=== PATIENT | male | born 1950 | race Caucasian/White ===

== ENCOUNTER → 2023-03-30 16:53 | Outpatient (CLI) | payer MEDICARE, OTHER, SELFPAY ==
--- NOTE | 2023-03-30 | DI.RAD_ITS ---
Exam(s) XR ABDOMEN FLAT UPRIGHT EXAM: XR ABDOMEN FLAT UPRIGHT CLINICAL HISTORY: ABDOMINAL DISTENSION R14.0 R/O OBSTRUCTION. TECHNIQUE: 2D digital imaging was performed. COMPARISON: No exams were available for comparison FINDINGS: Views Bowel gas pattern is nonspecific. No obvious bowel obstruction. No free air. Calcification is seen both sides the pelvis which are probably phleboliths. IMPRESSION: Nonspecific bowel gas pattern. DATA REPOSITORY: RADIATION DOSE DELIVERED:
--- NOTE | 2023-03-30 17:12 | DI.VRAD_ITS ---
PROCEDURE INFORMATION: Exam: XR Abdomen Exam date and time: 03/30/2023 4:21 PM Age: 72 years old Clinical indication: Other: Abdominal distension r14.0 R/O obstruction TECHNIQUE: Imaging protocol: Radiologic exam of the abdomen. Views: 2 Views. Upright and supine views. Total images: 3 COMPARISON: No relevant prior studies available. FINDINGS: Lungs: Lung bases are clear. Heart/Mediastinum: Heart is normal in size. Gastrointestinal tract: Bowel gas pattern is nonobstructive. Intraperitoneal space: Normal. No free air. Organs: No organomegaly. Vasculature: Bilateral pelvic phleboliths. Bones/joints: Mild degenerative change of the spine. Mild loss of height of T12 consistent with an age-indeterminate mild compression deformity. IMPRESSION: 1. Nonobstructive bowel gas pattern. 2. Mild loss of height of T12 consistent with an age-indeterminate mild compression deformity. Dictated and Authenticated by: Fabi Reddy MD. Ordering:SANDRO Tillman MD
== END ==
PROVIDERS: PCP Family Medicine; Visit Provider Family Medicine
DX: R14.0 Abdominal distension (gaseous) (principal)
CPT/HCPCS: 74019

== ENCOUNTER 2023-03-30 22:18 | Outpatient (REF) | payer MEDICARE, SELFPAY ==
[2023-03-30 22:44] LABS: Anion Gap 7.2 mmol/L (3-11); BUN 28 mg/dL (7-18); CO2 27.8 mmol/L (21.0-32.0); Calcium 9.5 mg/dL (8.5-10.1); Calculated LDL 76 mg/dL (<100); Chloride 108 mmol/L (98-107); Cholesterol 143 mg/dL (<200); Estimated GFR 79.97 (mL/min/1.73m2); Glucose 100 mg/dL (74-106); HDL Cholesterol 42 mg/dL (40-60); Potassium 4.2 mmol/L (3.5-5.1); Sodium 143 mmol/L (136-145); TSH (W/Ref FT4) 2.15 uIU/mL (0.36-3.74); Triglyceride 128 mg/dL (<150)
== END 2023-03-30 22:19 | disposition home or self-care (01) ==
LOC: NCHCN 22:18
PROVIDERS: PCP Family Medicine; Visit Provider Family Medicine
DX: E03.9 Hypothyroidism, unspecified (principal); E78.00 Pure hypercholesterolemia, unspecified
CPT/HCPCS: 80048; 80061; 84443; 85025

== ENCOUNTER → 2023-05-24 11:23 | Outpatient (BNVA) | payer MEDICARE, SELFPAY | PROVIDERS: PCP Family Medicine; Referring Provider Family Medicine; Visit Provider Surgery | DX: Z12.11 Encounter for screening for malignant neoplasm of colon (principal); Z86.010 Personal history of colon polyps ==

== ENCOUNTER 2023-06-02 10:54 | Day surgery (SDC) | payer MEDICARE, SELFPAY ==
--- NOTE | 2023-06-01 19:16 | PDOC.DSDIS_ITS ---
Date of service: 06/02/23 Time of Service: 13:46 Discharge Plan Disposition Patient Disposition: Home Condition: Good Discharge Details Reason For Visit: screening colonoscopy Attending Provider: Robin Shell Primary Care Provider: Layne Stark Home Meds and New Rx's Prescriptions: Continued multivitamin [Multiple Vitamins] Tablet 1 tab PO DAILY celecoxib [Celebrex] 200 MG capsule 200 mg PO BID atorvastatin [Lipitor] 40 MG tablet 40 mg PO DAILY levothyroxine [Synthroid] 100 MCG tablet 100 mcg PO DAILY oxycodone-acetaminophen [Percocet] 1 EACH tablet 1 tab-cap PO Q6H PRN tamsulosin [Flomax] 0.4 MG capsule 0.4 mg PO DAILY temazepam 15 MG capsule 15 mg PO HS esomeprazole magnesium 40 mg capsule,delayed release(DR/EC) 40 mg PO DAILY Discontinued polyethylene glycol 3350 17 gram/dose powder 238 g PO ONCE Qty: 238 0RF Rx Instructions: take per colonoscopy instructions bisacodyl [Dulcolax (bisacodyl)] 5 mg tablet,delayed release (DR/EC) 5 mg PO ONCE Qty: 4 0RF Rx Instructions: take per colonoscopy instructions Discharge Instructions Instructions: Diverticulosis (GEN), Diverticulitis Diet (GEN) Additional Instructions: Deepak, we were able to complete your colonoscopy today without any difficulty. Your prep was excellent. I could see everything just fine. I did not see any signs of tumors or polyps anywhere along your colon. Incidentally, you do have some diverticulosis. These are weak spots in the colon wall that typically accumulate with age. Generally speaking the best treatment is maintaining a balanced diet that is rich in dietary fiber, staying well-hydrated, and avoiding symptoms of constipation. I have attached a little bit of information here about diverticulosis. If you have any questions at all, please do not hesitate to let me know. Based on the polyp that you had removed on your previous colonoscopy, I still recommend a 5-year follow-up. 1. If tolerated, consume a soft, low fiber diet for 1-2 days. 2[address] Do not drive, drink alcohol, operate machinery, make critical decisions, or do activities that require coordination or balance for 24 hours. 3. Because air was put into your colon during the procedure, expelling air from your rectum (passing gas or farting) is normal. 4. You may not have a bowel movement for 1-3 days because of the colonoscopy prep. This is normal. 5. Go directly to the emergency room if you notice any of the following: Develop chills (warm to touch), or if you have a thermometer and your temperature is above 101 Difficulty breathing or difficultly swallowing Persistent vomiting Severe abdominal pain, other than gas cramps Severe chest pain Black, tarry stools Any bleeding ? exceeding one tablespoon 6. Call your physician if the site where your intravenous was started becomes red, swollen, painful, and warm to touch. 7. Your physician has reviewed your pre-procedure medications. Please continue to take those medications as previously ordered. You will be given specific information/education regarding any changes to your medications before leaving. Activity:: Activity as Tolerated Diet:: As Tolerated Discharge Orders Discharge Orders: Discharge Order (Routine); Ordered 06/01/23 Ordered By: Robin Shell DS: Diagnosis Discharge Diagnosis (1) Encounter for screening colonoscopy: Status: Acute Asessment and Plan: Negative screening colonoscopy today; based on previous tubular adenoma recomme nd 5-year follow-up
--- NOTE | 2023-06-01 19:18 | COLE_ITS ---
Date of service: 06/02/23 Time of Service: 13:47 Colonoscopy Report Date of procedure: 06/02/23 Pre-op diagnosis general: screening colonoscopy Post-op diagnosis procedure note: other (Diverticulosis) Procedure: Colonoscopy Surgeon: Robin Shell Anesthesia Type: General:No Airway Estimated blood loss (mL): 0 Pathology: none sent Complications: None Disposition: same day Indications: Deepak is 72 years old and he needs a screening colonoscopy. He has a history of tubular adenomas. Prep: Miralax/Dulcolax Procedure Start Time: 13:09 Procedure End Time: 13:30 Retraction Time: 15 Findings: Sigmoid diverticulosis Procedure Description: After the induction of monitored anesthetic care, and with the patient in left lateral decubitus position, I began by performing an external anorectal exam.? Perineum and skin were normal, as was the anal verge.? There was no evidence of external hemorrhoids.? Next, I performed a digital rectal exam.? I did not appreciate any abnormal findings.? Next, I advanced a colonoscope into the rectal vault.? I performed retroflexion.? There are grade 1 internal hemorrhoids.? Using insufflation, I then advanced the colonoscope beyond the rectal folds and into the sigmoid colon before advancing towards the cecum.? There was wid[place] sigmoid diverticulosis. The true lumen was easy to maintain. There is no stigmata of recent bleeding. The quality of the prep was excellent.? The scope was noted to be in the cecum by identification of the ileocecal valve and appendiceal orifice.? I then began withdrawing the colonoscope using repeated irrigation as necessary for full evaluation of the colonic mucosa. ?Once the scope was withdrawn to the level of the rectum, great care was taken to examine portions of the rectal folds.? I did not see any signs of tumors or polyps anywhere along the colon. Finally, the scope was withdrawn and the patient was brought to the same-day surgery recovery unit as the anesthetic wore off. ?The findings and instructions were shared with the patient prior to discharge. [place] Bowel Prep [place] Bowel Prep Right Colon: 3 Left Colon: 3 Transverse Colon: 3 Total Score: 9
[2023-06-02 11:10] VITALS: BP 149/85; PULSE 74; RESP 18; TEMP 36.8; O2SAT 97
[2023-06-02] MEDS: Lactated Ringers 1,000 ML 80 ML IV (11:30)
--- NOTE | 2023-06-02 12:52 | W.ANESPRE ---
General Info Date of Service Date Performed: 06/02/23 Height: 5 ft 8 in Weight: 108 kg Body Mass Index (BMI): 36.1 Surgical Procedure: Operation Date: 06/02/23 12:35 Proposed Procedure Side Surgeon jesus Shell MD Meds Allergies and Home Medications Allergies Allergy/AdvReac Type Severity Reaction Status Date / Time No Known Drug Allergies Allergy Verified 06/02/23 11:24 Home Medication Medication Instructions Recorded atorvastatin 40 mg tablet (Lipitor) 40 mg PO DAILY 04/04/17 celecoxib 200 mg capsule (Celebrex) 200 mg PO BID 04/04/17 levothyroxine 100 mcg tablet 100 mcg PO DAILY 04/04/17 (Synthroid) oxycodone-acetaminophen 10 mg-325 1 tab-cap PO Q6H PRN 04/04/17 mg tablet (Percocet) tamsulosin 0.4 mg capsule (Flomax) 0.4 mg PO DAILY 04/04/17 temazepam 15 mg capsule 15 mg PO HS 04/04/17 esomeprazole magnesium 40 mg 40 mg PO DAILY 05/08/23 capsule,delayed release multivitamin (Multiple Vitamins 1 tab PO DAILY 05/24/23 tablet) Current Visit Medications: Current Medications Generic Name Dose Route Start Last Admin Trade Name Freq PRN Reason Stop Dose Admin Hyoscyamine Sulfate 0.125 mg 06/01/23 19:20 Hyoscyamine 0.125 Mg Sl/Oral/Chew SL 07/01/23 19:19 DIRECTED PRN Ringer's Solution 1,000 mls @ 80 mls/hr 06/02/23 06:00 06/02/23 11:30 IV 07/01/23 23:59 80 mls/hr INFUSION WILFREDO Administration IV Miscellaneous Supplies 1 each 06/02/23 06:00 Iv Access IV 07/01/23 23:59 DIRECTED WILFREDO Ondansetron HCl 4 mg 06/01/23 19:20 Ondansetron 4 Mg/2 Ml Vial IVP 07/01/23 19:19 Q4H PRN PRN Nausea / Vomiting Sodium Chloride 0 ml 06/02/23 06:00 Normal Saline Flush 10 Ml Syr IV 07/01/23 23:59 PRN PRN Sodium Chloride 0 ml 06/02/23 06:00 Normal Saline 10 Ml Vial IJ 07/01/23 23:59 DIRECTED PRN Sterile Water 0 ml 06/02/23 06:00 Water,Injection,Sterile 10 Ml Vial IJ 07/01/23 23:59 DIRECTED PRN PFSH Active Problems Active Problems: Problem Status Onset Code Encounter for screening colonoscopy Z12.11 Medical History Medical History (Updated 06/01/23 @ 19:17 by Robin Shell MD) H/O fracture Back fracture 2003 Thyroid disease HTN (hypertension) GERD (gastroesophageal reflux disease) PE (pulmonary thromboembolism) 1988 Surgical History Surgical History History of bilateral knee replacement H/O inguinal hernia repair History of repair of anterior cruciate ligament of left knee EGD - [facility] (04/18/17) Colonoscopy - [facility] (04/18/17) tubular adenoma Tobacco Smoking/Tobacco Use Status: Never Alcohol Alcohol Intake: current Alcohol intake frequency: a few times a week Substance Use Substance use: Never Substance use type: does not use Vital Signs and Lab Results Vital Signs Most Recent Vital Signs in EMR: Most Recent Vital Signs Temp Pulse Resp BP Pulse Ox 36.8 C 74 18 149/85 H 97 06/02/23 11:10 06/02/23 11:10 06/02/23 11:10 06/02/23 11:10 06/02/23 11:10 Lab Results Blood Type / Crossmatch: No Data to Display Complete Blood Count: No Data to Display Complete Metabolic Panel: No Data to Display Liver Function Panel: No Data to Display Coagulation Panel: No Data to Display Cardiac Panel: No Data to Display Arterial Blood Gas: No Data to Display Venous Blood Gas: No Data to Display Pancreas Panel: No Data to Display Thyroid Panel: No Data to Display Infectious Disease: No Data to Display Blood Cultures: No Data to Display Toxicology Panel: No Data to Display Anesthesia Assessment and Plan Anesthesia History Personal History: No History of Anesthesia Complications Family History: Other Exercise Tolerance Exercise Tolerance: Metabolic Equivalents>4 Pertinent Negatives Pertinent Negatives: No Major Cardiovascular Symptoms or Complaints and No Major Pulmonary Symptoms or Complaints Cardiac & Pulmonary Exam Cardiac Exam: Normal S1/S2 Heart Sounds Pulmonary Exam: Clear Bilateral Breath Sounds Implantable Cardiac Device Does patient have a Pacemaker or an ICD?: No Airway Exam Known Difficult Airway: No Mallampati Class: 3 Mouth Opening: Normal (> 3cm) Thyromental Distance: Greater than 3 cm Neck Range of Motion: Full ROM Neck Circumference: Normal Teeth Condition: Normal Dentition and Removable Dentures/Plates Upper ASA Classification ASA Score: ASA 2 Emergency Case?: No NPO Status NPO Status: NPO Clears >2 hours, Solids >8 hours Anesthesia Plan Resuscitation Status: Full Code Anesthesia Technique: General Anesthesia Airway Planned: Natural Airway Monitors Used: Standard Monitors
[2023-06-02 12:55] VITALS: BMI 36.1
[2023-06-02 13:40] VITALS: BP 114/71; PULSE 68; RESP 18; TEMP 36.8; O2SAT 96
[2023-06-02 14:06] VITALS: BP 147/80; PULSE 63; RESP 18; TEMP 36.5; O2SAT 97
--- NOTE | 2023-06-02 14:26 | W.ANESPOSTOP ---
Postoperative Evaluation Date, Time and Location Date Performed: 06/02/23 Time Performed: 13:52 Patient Location: Day Surgery Unit Vital Signs Most Recent Imported Vital Signs: Most Recent Vital Signs Temp Pulse Resp BP Pulse Ox 36.5 C 63 18 147/80 H 97 06/02/23 14:06 06/02/23 14:06 06/02/23 14:06 06/02/23 14:06 06/02/23 14:06 Pain Score Most Recent Pain Score: Most Recent Pain Score Pain Level 0 06/02/23 14:06 Assessment Mental Status: Awake (Alert & Oriented to Patient Baseline) Airway and Respiratory Function: Patent airway with normal (patient baseline) respiratory exam Cardiovascular Function: Hemodynamically Stable Hydration Status: Adequately Hydrated Nausea & Vomiting: No Nausea or Vomiting Pain: Pt. Denies Any Pain Peripheral Nerve Block: Patient did not receive a nerve block
== END 2023-06-02 14:15 | disposition home or self-care (01) ==
LOC: SUR 10:54
PROVIDERS: PCP Family Medicine; Visit Provider Surgery
PROC: 0DJD8ZZ Inspection of Lower Intestinal Tract, Via Natural or Artificial Opening Endoscopic (ICD-10-PCS; CPT 45378; principal; 2023-06-02 12:30)
DX: Z12.11 Encounter for screening for malignant neoplasm of colon (principal); K57.30 Diverticulosis of large intestine without perforation or abscess without bleeding; K64.0 First degree hemorrhoids
CPT/HCPCS: G0121; J2704

== ENCOUNTER → 2023-07-06 12:10 | Outpatient (CLI) | payer MEDICARE, SELFPAY ==
[2023-07-06] MEDS: Omnipaque 350 MG/ML 100 ML BTL IJ (13:12)
[2023-07-06] MEDS: Normal Saline - Diluent 50 ML VIAL IJ (13:13)
--- NOTE | 2023-07-06 13:45 | DI.CT_ITS ---
Exam(s) CT CHEST PE CTA EXAM: CT CHEST PE CTA CLINICAL HISTORY: DYSPNEA ON EXERTION, R06.09, ? PE. TECHNIQUE: Imaging Protocol: Axial CT angiography was performed with multi-slice acquisition and mu lti-planar and/or 3D reconstructions. CONTRAST MATERIAL: Intravenous: Omnipaque 350 contrast volume:100 mL COMPARISON: No exams were available for comparison FINDINGS: The examination is limited due to patient motion artifact. Tracheobronchial tree: Patent where visualized. Pulmonary parenchyma: There is poor inspiration with decreased lung volumes. No focal consolidating infiltrates are seen. There are dependent infiltrates in the lungs which may represent atelectasis. Mild pulmonary fibrosis. Pulmonary Arteries: No evidence of filling defect to suggest pulmonary emboli. Mediastinum and Griselda: No dominant adenopathy or fluid collection. The esophagus is unremarkable. Visualized thyroid gland: Unremarkable. Pleura: No effusion or pneumothorax. Heart: Cardiomegaly. Coronary artery calcifications are present. No pericardial effusion. Aorta: Thoracic aorta non-dilated. Atherosclerosis. Due to the timing of the bolus, the aorta is not well opacified. Upper abdomen: Unremarkable. Soft tissues: Unremarkable. Bones: Within normal limits for the patient's age. IMPRESSION: 1. No evidence of pulmonary embolism or thoracic aortic aneurysm. 2. There is poor inspiration with decreased lung volumes. There are atelectatic changes in the lungs . No focal consolidating infiltrates are seen. 3. Mild pulmonary fibrosis. RADIATION DOSE DELIVERED: Total DLP DATA REPOSITORY: All CT scans at this facility are submitted to the National Radiology Data Registry (NRDR) Dose Index Registry (DIR) with the [employer] (A[employer]). RADIATION OPTIMIZATION: All CT scans at this facility use at least one of these dose optimization te chniques: automated exposure control; mA and/or kV adjustment per patient size (includes targeted exa ms where dose is matched to clinical indication); or iterative reconstruction.
== END ==
PROVIDERS: PCP Family Medicine; Visit Provider Family Medicine
DX: J84.10 Pulmonary fibrosis, unspecified (principal); R06.09 Other forms of dyspnea
CPT/HCPCS: 36415; 71275; 80053; 83880; 85025; 85379; J3490

== ENCOUNTER 2023-07-06 13:28 | Outpatient (CLI) | payer MEDICARE, SELFPAY ==
[2023-07-06 11:53] LABS: Abs Immature Grans 0.02 10^3/uL (0.0-0.06); Absolute Basophil Count 0.04 10^3/uL (0.0-0.2); Absolute Lymphocyte Count 1.79 10^3/uL (1.2-3.4); Absolute Monocyte Count 0.67 10^3/uL (0.1-0.8); Absolute Neutrophil Count 4.06 10^3/uL (1.2-6.7); Basophils % 0.6; Eosinophils % 4.4; HCT 41.3 % (40.0-50.0); HGB 13.6 g/dL (13.5-17.5); Immature Grans % 0.3; MCH 29.1 pg (27.0-33.0); MCHC 32.9 % (32.0-36.0); MCV 88 fL (80-95); MPV 9.9 fL (8.0-11.0); Monocytes % 9.7; Platelet Count 161 10^3/uL (130-400); RBC 4.68 10^6/uL (4.36-5.78); RDW 12.4 % (11.8-14.1); RDW-SD 39.9 fL; WBC 6.88 10^3/uL (4.4-10.8)
[2023-07-06 12:39] LABS: ALT 29 U/L (16-63); AST 20 U/L (15-37); Albumin 3.6 g/dL (3.4-5.0); Alkaline Phosphatase 97 U/L (46-116); Anion Gap 5.1 mmol/L (3-11); BUN 29 mg/dL (7-18); Bilirubin, Total 0.6 mg/dL (0.2-1.0); CO2 28.9 mmol/L (21.0-32.0); CREATININE 1.1 mg/dL (0.70-1.30); Calcium 9.6 mg/dL (8.5-10.1); Chloride 107 mmol/L (98-107); Estimated GFR 71.32 (mL/min/1.73m2); Glucose 111 mg/dL (74-106); NT-proBNP 79 pg/mL (<300); Potassium 4.5 mmol/L (3.5-5.1); Sodium 141 mmol/L (136-145); Total Protein 7.2 g/dL (6.4-8.2)
[2023-07-06 12:40] LABS: D-Dimer 797 ng/mlFEU (<500)
== END 2023-07-06 13:29 | disposition home or self-care (01) ==
LOC: LBO 07-07 13:29
PROVIDERS: PCP Family Medicine; Visit Provider Family Medicine
DX: R06.09 Other forms of dyspnea (principal)
CPT/HCPCS: 36415; 80053; 83880; 85025; 85379

== ENCOUNTER → 2023-08-07 04:01 | Outpatient (CLI) | payer MEDICARE, SELFPAY ==
--- NOTE | 2023-08-07 | DI.RAD_ITS ---
Exam(s) XR LUMBAR SPINE COMPLETE EXAM: XR LUMBAR SPINE COMPLETE CLINICAL HISTORY: LOW BACK PAIN, M54.50. TECHNIQUE: 2D digital imaging was performed. COMPARISON: MR MRI - LUMBAR SPINE WO CONTRAST from 04/23/2012 FINDINGS: Five views No evidence of acute fracture. Wedge compression fracture of T12 appears stable when compared to 201 2 MRI. There is mild degenerative anterolisthesis of L4 upon L5 without disc space narrowing at this level. No other levels of slippage. Mild multilevel anterior osseous lipping. Bone density normal. No os seous lesions. No scoliosis. Facet arthropathy noted at the lower 3 levels. Sacroiliac joints unre markable. IMPRESSION: Some progression of the degenerative changes when compared to MRI scan of 2012. Mild degenerative anterolisthesis of L 4 upon L5 DATA REPOSITORY: RADIATION DOSE DELIVERED:
--- NOTE | 2023-08-07 | DI.RAD_ITS ---
Exam(s) XR HIP LT COMPLETE AP PELVIS EXAM: XR HIP LT COMPLETE AP PELVIS CLINICAL HISTORY: LT HIP PAIN, M25.552. TECHNIQUE: 2D digital imaging was performed. COMPARISON: No exams were available for comparison FINDINGS: Two views. No evidence of pelvic nor hip fractures. Additional lateral view of the left hip does not reveal sig nificant osteophytes. Bone density normal. No osseous lesions. IMPRESSION: No significant osseous findings DATA REPOSITORY: RADIATION DOSE DELIVERED:
--- NOTE | 2023-08-07 | DI.RAD_ITS ---
Exam(s) XR SHOULDER LT COMPLETE 2+V EXAM: XR SHOULDER LT COMPLETE 2+V CLINICAL HISTORY: LT SHOULDER PAIN,M25.512. TECHNIQUE: 2D digital imaging was performed. COMPARISON: No exams were available for comparison FINDINGS: Five views. No evidence of fracture or dislocation or abnormal soft tissue calcifications in the subacromial spac e. There is a tiny calcification parallel to the superior aspect of the osseous glenoid noted. Ther e are mild degenerative changes in the glenohumeral joint and AC joint. Bone density normal. No oss eous lesions. IMPRESSION: Mild degenerative changes in the glenohumeral and AC joints. Small calcific density parallel to the superior aspect of the osseous glenoid of questionable signifi cance. DATA REPOSITORY: RADIATION DOSE DELIVERED:
== END ==
PROVIDERS: PCP Family Medicine; Visit Provider Family Medicine
DX: M43.16 Spondylolisthesis, lumbar region (principal); M19.012 Primary osteoarthritis, left shoulder
CPT/HCPCS: 72110; 73030; 73502

== ENCOUNTER 2023-08-18 12:49 | Outpatient (REF) | payer MEDICARE, SELFPAY ==
[2023-08-17 21:58] LABS: ESR 10 mm/hr (0-20)
[2023-08-17 23:08] LABS: C-Reactive Protein 0.25 mg/dL (0.0-0.3); TSH (W/Ref FT4) 2.17 uIU/mL (0.36-3.74)
[2023-08-18 19:06] LABS: PSA, Screening 2.1 ng/mL (<=6.5)
[2023-08-22 12:47] LABS: Testosterone, Total 335 ng/dL (240-950)
== END 2023-08-18 12:50 | disposition home or self-care (01) ==
LOC: NCHCN 12:49
PROVIDERS: PCP Family Medicine; Visit Provider Family Medicine
DX: R53.83 Other fatigue (principal); Z12.5 Encounter for screening for malignant neoplasm of prostate
CPT/HCPCS: 84153; 84403; 85652; 84443; 86140

== ENCOUNTER → 2023-08-29 01:08 | Outpatient (CLI) | payer MEDICARE, SELFPAY ==
--- NOTE | 2023-08-29 | DI.NM_ITS ---
APPROVED REPORT Exam: Pharmacologic Patient Location: Out-Patient Room/Bed: Stress Nurse: Faye Flores RN Ordering Provider:SHONNA NIDHI, Contact Number: [phone] BMI: 34.96 Baseline Rhythm: Sinus Bradycardia Comment: LBBB Indications: Chest pain, Medical History Medical History: Back fracture, thyroid disease, PE, HLD Cardiac Medications: Atorvastatin, celecoxib, levothyroxine, multivitamin, percocet, tamsulosin, kalpana zepam Allergies: NKDA Cardiac Risk Factors: HTN, HLD Previous Cardiac Procedures: None Pretest Chest Pain Characteristics: None Exercise History: Indeterminate Physical Disabilities: None Lung Sounds: Clear to auscultation Heart Sounds: Bradycardia Stress Test Details Test: Pharmacologic stress testing performed using 0.4 mg of regadenoson per 5 mL given IV over 10 s econds. Reason for pharmacologic stress test: LBBB. Nuclear Acquisition: Rest Tc-99m/Stress Tc-99m 1 day Rest Isotope: Tc-99m Sestamibi. Dose: 11.0 Date: 08/29/2023 Injection Time: 0845 Stress Isotope: Tc-99m Sestamibi. Dose: 36.0 Date: 08/29/2023 Injection Time: 1020 HR Resting HR Supine: 58 bpm Max Heart Rate (APMHR): 147.384440 bpm Target HR (85% APMHR): 124.297395 bpm Max HR Achieved: 89 bpm % of APMHR: 60.54 Recovery HR: 78 bpm BP Resting BP Supine: 158/90 mmHg Max BP: 158/90 mmHg Recovery BP: 142/80 mmHg ECG Resting ECG: Sinus bradycardia, LBBB Ectopy: None Stress ECG: Sinus Rhythm, LBBB ST Change: Nondiagnostic low heart rate Arrhythmia: None Recovery ECG: Sinus Rhythm, LBBB Recovery ST Change: Nondiagnostic low heart rate Recovery Arrhythmia: None Clinical Stress Symptoms: Mild SOB Angina Score: None Rate Pressure Product: [id number] Stress ECG Conclusion 1. Normal clinical response, no angina 2. Nondiagnostic ECG with baseline LBBB 3. Normal BP response 4. Nuclear findings reported separately Stress Test Summary STAGE HR BP SpO2 Symptoms NOTES Supine 58 158/90 93 1 min post Lexiscan injection 72 158/88 93 Mild SOB 3 min post Lexiscan injection 82 150/76 6 min post Lexiscan injection 78 142/80 All symptoms resolved MPI Conclusion There is small area of anterolateral defect which is partially reversible suggestive of ischemia. Overall LV function is normal, EF 51%. Radiologist Interpretation Radiologist agrees with Registered Medical Assistant's Interpretation. Radiologist Interpretation by: Annie Stein MD Interpretation Date/Time: 08/30/2023 14:07:55
[2023-08-29] MEDS: Regadenoson 0.4 MG/5 ML SYR IVP (10:38)
== END ==
PROVIDERS: PCP Family Medicine; Visit Provider Family Medicine
DX: R07.9 Chest pain, unspecified (principal)
CPT/HCPCS: 78452; 93016; 93018; 93017; J2785

== ENCOUNTER 2023-09-25 05:28 | Outpatient (CLI) | payer MEDICARE, SELFPAY ==
[2023-09-25] MEDS: Inhaler, Assist Device 1 EACH MC (09:15)
[2023-09-25] MEDS: Levalbuterol HFA 15 GM INH 4 PUFF IH (09:15)
--- NOTE | 2023-09-25 14:17 | W.PFT ---
Date of service: 09/25/23 Time of Service: 08:01 Pulmonary Function Test Result Indications: Dyspnea on exertion Interpretation Spirometry: There is no airflow limitation. No bronchodilator response. Lung Volumes: Normal lung volumes. Diffusion Capacity: Normal diffusion Airway Pressure: Normal airways resistance Impression Normal pulmonary function testing Clinical Correlation therefore is recommended.
== END 2023-09-25 05:29 | disposition home or self-care (01) ==
LOC: RT 05:28
PROVIDERS: PCP Family Medicine; Visit Provider Family Medicine
DX: R06.00 Dyspnea, unspecified (principal)
CPT/HCPCS: 94060; 94726; 94729

== ENCOUNTER → 2023-10-26 03:12 | Outpatient (CLI) | payer MEDICARE, SELFPAY ==
--- NOTE | 2023-10-26 | DI.US_ITS ---
Exam(s) US RENAL EXAM: US RENAL CLINICAL HISTORY: URINARY RETENTION,R33.9. TECHNIQUE: Booth scale, color and spectral Doppler were used. COMPARISON: None FINDINGS: Renal size in cm: Right: 10.8 left: 0.0 Echogenicity: Normal Hydronephrosis: No Cyst or mass: Multiple cysts bilateral. Largest on right 2.5 cm, at upper pole. Largest on left 3.5 cm, at upper pole. Nephrolithiasis: No Bladder:Normal. Prevoid vol:148 cc Postvoid vol:Patient unable to void Prostate volume 25 cc IMPRESSION: Bilateral renal cysts. Bladder volume 148 cc . Patient unable to void for postvoid residual volume. Prostate volume 25 cc. DATA REPOSITORY:
== END ==
PROVIDERS: PCP Family Medicine; Visit Provider Family Medicine
DX: R33.9 Retention of urine, unspecified (principal); N28.1 Cyst of kidney, acquired
CPT/HCPCS: 76770

== ENCOUNTER → 2023-12-19 09:13 | Outpatient (BNVA) | payer MEDICARE, SELFPAY | PROVIDERS: PCP Family Medicine; Referring Provider Family Medicine; Visit Provider Surgery | DX: K62.5 Hemorrhage of anus and rectum (principal); R12 Heartburn; Z95.9 Presence of cardiac and vascular implant and graft, unspecified | CPT/HCPCS: 99213 ==

== ENCOUNTER 2024-01-17 10:55 | Outpatient (RCR) | payer MEDICARE, SELFPAY | END 2024-01-21 23:59 | disposition home or self-care (01) | LOC: CR 10:55 | PROVIDERS: PCP Family Medicine; Visit Provider Internal Medicine Cardiovascular Disease | DX: I20.89 Other forms of angina pectoris (principal) | CPT/HCPCS: S9472 ==

== ENCOUNTER 2024-01-23 13:42 | Outpatient (CLI) | payer MEDICARE, SELFPAY ==
--- NOTE | 2024-01-23 13:30 | DI.RAD_ITS ---
Exam(s) XR SHOULDER RT COMPLETE 2+V EXAM: XR SHOULDER RT COMPLETE 2+V CLINICAL HISTORY: BILATERAL SHOULDER PAIN. TECHNIQUE: 2D digital imaging was performed of the right shoulder. Three images were obtained. Gra xi and axillary views were obtained. COMPARISON: CR XR SHOULDER LT COMPLETE 2+V from 08/07/2023 FINDINGS: BONES: No acute fracture is present. No bony destructive lesion is seen. JOINTS: No dislocation present. The glenohumeral joint is well maintained. Degenerative changes are seen at the acromioclavicular joint which are mild in degree. There is mild spurring seen at the lat eral aspect of the acromion. SOFT TISSUE: Normal. IMPRESSION: Degenerative changes of the right shoulder as described above. DATA REPOSITORY: RADIATION DOSE DELIVERED:
== END 2024-01-23 13:43 | disposition home or self-care (01) ==
LOC: DIORS 13:43
PROVIDERS: PCP Family Medicine; Referring Provider Family Medicine; Visit Provider Student in an Organized Health Care Education/Training Program
DX: M19.011 Primary osteoarthritis, right shoulder; M19.012 Primary osteoarthritis, left shoulder
CPT/HCPCS: 99213; 73030

== ENCOUNTER 2024-01-31 09:47 | Emergency (ER) | payer MEDICARE, SELFPAY ==
--- NOTE | 2024-01-31 09:45 | RT.EKG_ITS ---
APPROVED REPORT Exam: Resting ECG Reason for Exam: Chest Pain Patient Location: E HR:61 bpm ECG Measurements Heart Rate 61 AXIS KS 189 P 39 QRSd 162 QRS -19 QT 449 T 47 QTc 454 Conclusion Sinus rhythm...normal P axis, V-rate 60- 99 Left bundle branch block...QRSd>120, broad/notched R ST elevation secondary to IVCD...Multiple VCG criteria sinus rhtyhm, LBBB
[2024-01-31 09:52] VITALS: BP 131/74; PULSE 63; RESP 16; TEMP 36.8; O2SAT 95
--- NOTE | 2024-01-31 10:00 | ED.GENADUL_ITS ---
Discharge Plan Disposition Patient Disposition: Home Condition: Good Discharge Details Clinical Impression: Chest pain Primary Care Provider: Layne Stark ED Provider: Aga Hernández Home Meds and New Rx's Prescriptions: Continued multivitamin [Multiple Vitamins] Tablet 1 tab PO DAILY atorvastatin [Lipitor] 40 MG tablet 40 mg PO DAILY levothyroxine [Synthroid] 100 MCG tablet 100 mcg PO DAILY oxycodone-acetaminophen [Percocet] 1 EACH tablet 1 tab-cap PO Q6H PRN tamsulosin [Flomax] 0.4 MG capsule 0.4 mg PO DAILY temazepam 15 MG capsule 15 mg PO HS esomeprazole magnesium 40 mg capsule,delayed release(DR/EC) 40 mg PO DAILY aspirin 81 mg tablet,delayed release (DR/EC) 81 mg PO DAILY clopidogrel 75 mg tablet 75 mg PO DAILY folic acid 1 mg tablet 1 mg PO DAILY metoprolol succinate 25 mg tablet extended release 24 hr 25 mg PO DAILY Discharge Instructions Instructions: Chest Pain, Adult ED Additional Instructions: Labs and x-ray are reassuring here today. Please continue to monitor your symptoms. If they become active during times of exertion, become more persistent or have other changes please seek care urgently once again. Otherwis e, I am concerned that you may have viral illness with your other symptoms you have been having which may be causing some of your discomfort. Please follow-up with your primary care within the next week for reevaluation. Please call to schedule appointment. Referrals: Layne Stark [Primary Care Provider] - Discharge Data Discharge Date/Time-TO BE ENTERED AT DEPARTURE: 01/31/24 11:52 HPI General Date/Time Provider Initiated Documentation: 01/31/24 09:56 . Limitations to Documentation: no limitations . Information obtained by: patient and RN notes reviewed . History of Present Illness 73 year old M presents to the emergency department with the chief complaint of intermittent chest pain and shortness of breath, described as mild, Quality is described as aching, and is localized to the chest. Patient reports no radiation. Patient started experiencing this hour(s) and it has been intermittent. Movement improves symptom(s), (has not noticed when active) Rest worsens symptoms (has noted it more when at rest) . Patient notes chest pain and shortness of breath; denies cough, diaphoresis, fever/chills, headaches, loss of appetite, malaise, nausea/vomiting, syncope and weakness. Patient did receive the following treatments prior to arrival, none and other (already on ASA and plavix) Related Data Home Medications Medication Instructions Recorded Confirmed atorvastatin 40 mg tablet (Lipitor) 40 mg PO DAILY 04/04/17 01/31/24 levothyroxine 100 mcg tablet 100 mcg PO DAILY 04/04/17 01/31/24 (Synthroid) oxycodone-acetaminophen 10 mg-325 1 tab-cap PO Q6H PRN 04/04/17 01/31/24 mg tablet (Percocet) tamsulosin 0.4 mg capsule (Flomax) 0.4 mg PO DAILY 04/04/17 01/31/24 temazepam 15 mg capsule 15 mg PO HS 04/04/17 01/31/24 esomeprazole magnesium 40 mg 40 mg PO DAILY 05/08/23 01/31/24 capsule,delayed release multivitamin (Multiple Vitamins 1 tab PO DAILY 05/24/23 01/31/24 tablet) aspirin 81 mg tablet,delayed 81 mg PO DAILY 01/11/24 01/31/24 release clopidogrel 75 mg tablet 75 mg PO DAILY 01/11/24 01/31/24 folic acid 1 mg tablet 1 mg PO DAILY 01/11/24 01/31/24 metoprolol succinate 25 mg 25 mg PO DAILY 01/11/24 01/31/24 tablet,extended release 24 hr Allergies Allergy/AdvReac Type Severity Reaction Status Date / Time No Known Drug Allergies Allergy Unknown nonenone Verified 01/31/24 09:56 General Stated Complaint: Chest Pain TODD: 2 Review of Systems Constitutional Constitutional: Reports as per HPI, Denies chills, Denies fever(s), Denies headache(s), Denies lethargy and Denies poor appetite Eyes Eyes: Denies change in vision ENT Ears, Nose, Mouth, and Throat: Denies dizziness and Denies headache(s) Cardiovascular Cardiovascular: Reports as per HPI and Denies dyspnea on exertion Respiratory Respiratory: Reports as per HPI, Denies chest congestion, Denies cough, Denies pain on inspiration, Denies pain with cough and Denies dyspnea on exertion Gastrointestinal Gastrointestinal: Reports as per HPI, Denies abdominal pain, Denies diarrhea, Denies nausea and Denies vomiting Genitourinary Genitourinary: Denies system reviewed and no additional complaints, except as documented (denies change in urinary habits) Musculoskeletal Musculoskeletal: Reports as per HPI and Denies back pain Integumentary/Breasts Skin/Breast: Reports as per HPI and Denies rash Neurologic Neurologic: Reports as per HPI, Denies dizziness and Denies headache(s) Exam Const General: cooperative, healthy appearing, comfortable, no acute distress and well developed Nutritional Appearance: average body habitus and well nourished Orientation: alert, awake and oriented x3 HENMT Head: normal to inspection Mouth: moist mucous membranes Chest Chest: normal inspection of the chest (small circular area of yellowed ecchymosis left upper outer chest wall), normal palpation of entire chest wall and no crepitus Resp Effort & Inspection: normal respiratory effort, able to speak in complete sentences and no respiratory distress Auscultation: crackles on the left at the base Cardio Rate: regular rate Rhythm: regular rhythm Heart Sounds: S1 normal and S2 normal GI Inspection: normal to inspection, no edema and non-distended Palpation: soft, no hepatosplenomegaly, not firm, no guarding, not rigid and nontender Skin General skin exam: no rashes or lesions noted Trauma: no lacerations or abrasions Neuro General: patient alert, patient awake and patient oriented x3 Cognition: normal cognition Speech: speech normal Gait: normal gait Extrem General: normal to inspection, capillary refill normal, no pedal edema, no calf tenderness, normal gait and other (2+ distal pulses) Course Vital Signs Vital signs: Vital Signs Temperature 36.8 C 01/31/24 09:52 Pulse 63 01/31/24 09:52 Respiratory Rate 16 01/31/24 09:52 Blood Pressure 131/74 01/31/24 09:52 Pulse Oximetry 95 01/31/24 09:52 Temperature 36.8 C 01/31/24 09:52 Pulse 63 01/31/24 09:52 Respiratory Rate 16 01/31/24 09:52 Blood Pressure 131/74 01/31/24 09:52 Pulse Oximetry 95 01/31/24 09:52 Oxygen Delivery Method Room Air 01/31/24 09:52 Oxygen Flow Rate 0 01/31/24 09:52 Pain Level 0 01/31/24 09:52 Medical Decision Making Patient is a plesant 73 year old male with PMH of ACS with stent placement this past spring at [facility] [place], thyroid disease, HTN, GERD, PE, presenting with c/c of SOB and CP that began yesterday. Denies this being attributed to activity, comes on at rest, lasts 5-10 minutes. States he has only had pain when at rest. No pleuritic pain. No known sick contacts but states that he was recently ill, had URI/GI upset that has seemed to subside. Denies abdominal pain, N/V/D. No pain radiating into lan back. No change in appetite. Has been taking his dual antiplatelets, no missed medications. No recent change in medications. On exam, patient appears nontoxic. He has crackles in lan LLL otherwise normal pulmonary exam, normal cardiac exam. No LE edema, no calf pain, 2+ distal pulses. Small bruise noted on left side of chest, patient no clear about where this came from. Abdomen benign. ECG reviewed by attending, concerning for LBBB, patient reports that this is chronic, states he was first diagnosed in July of this year. Followed by cardiology at [facility]. With his recent illness, none exertional chest pain, crackles on exam, concern for infectious etiology as well. Will obtain a COVID test as well as x-ray to evaluate for potential pneumonia. Labs are reassuring. No leukocytosis. Stable H&H. No elevation of his troponin. CMP within normal limits. Chest x-ray reviewed by radiologist as below: FINDINGS: Exam limited by overlying monitoring leads. HEART: Normal size. Aorta: Not dilated. PULMONARY VASCULATURE: Normal. MEDIASTINUM: Unremarkable. LUNGS: Clear. PLEURAL SPACE: No pleural effusion or pneumothorax. BONE:Stable mild T12 compression fracture. Degenerative changes in thoracic spine. SOFT TISSUES: Unremarkable. IMPRESSION: No acute abnormality. Discussed the findings with the patient. As has been having chest pain for over 24 hours, it has been intermittent and not associated with exertion, does not sound particularly cardiovascular in nature. Do not see need for repeat troponin at this point. Patient's history did not sound consistent with pulmonary emboli. The history he gives does indicate the patient had a provoked PE after knee surgery in the 1980s. He has not needed anticoagulation since that time. He is currently on aspirin and Plavix associated with his stent placement. No recent periods of being sedentary, travel or trauma that may increase the risk. And again, his symptoms seem to be more rest which is also not consistent with a pulmonary emboli. Encourage close follow-up with primary care. Discussed risk strict return precautions. Encouraged to continue to monitor his signs and symptoms. All his questions and concerns were addressed and he is agreement this plan. Quality:SDOH Health Related Social Needs: No Data to Display PFSH All Active Problems (Updated 01/31/24 @ 11:12 by NERI Bautista) Chest pain (Acute) Arthritis of right glenohumeral joint (Acute) Arthritis of left glenohumeral joint (Acute) Painless rectal bleeding (Acute) Encounter for screening colonoscopy (Acute) Medical History (Updated 01/31/24 @ 11:12 by NERI Bautista) H/O fracture Back fracture 2003 Thyroid disease HTN (hypertension) GERD (gastroesophageal reflux disease) PE (pulmonary thromboembolism) 1988 Surgical History History of bilateral knee replacement H/O inguinal hernia repair History of repair of anterior cruciate ligament of left knee EGD - [facility] (04/18/17) Colonoscopy - [facility] (05/2023) Social History Smoking/Tobacco Use Status: Never Smoking risk assessment performed?: Yes Alcohol Intake: current Alcohol Intake frequency: a few times a week Drug use: Never Substance use type: does not use Housing: house Do you feel safe at home: Yes Do you feel safe in your relationship?: Yes
[2024-01-31 10:06] LABS: Abs Immature Grans 0.02 10^3/uL (0.0-0.06); Absolute Basophil Count 0.03 10^3/uL (0.0-0.2); Absolute Eosinophil Count 0.18 10^3/uL (0.0-0.7); Absolute Lymphocyte Count 1.16 10^3/uL (1.2-3.4); Absolute Monocyte Count 0.71 10^3/uL (0.1-0.8); Absolute Neutrophil Count 3.75 10^3/uL (1.2-6.7); Basophils % 0.5 %; Eosinophils % 3.1 %; HCT 39.3 % (40.0-50.0); HGB 13.1 g/dL (13.5-17.5); Immature Grans % 0.3 %; Lymphocytes % 19.8 %; MCHC 33.3 % (32.0-36.0); MCV 90 fL (80-95); MPV 10.1 fL (8.0-11.0); Monocytes % 12.1 %; Neutrophils % 64.2 %; Platelet Count 160 10^3/uL (130-400); RBC 4.37 10^6/uL (4.36-5.78); RDW 12.5 % (11.8-14.1); RDW-SD 41.2 fL; WBC 5.85 10^3/uL (4.4-10.8)
[2024-01-31 10:25] LABS: ALT 36 U/L (16-63); AST 20 U/L (15-37); Albumin 3.4 g/dL (3.4-5.0); Alkaline Phosphatase 91 U/L (46-116); BUN 25 mg/dL (7-18); Bilirubin, Total 0.35 mg/dL (0.2-1.0); Calcium 9.3 mg/dL (8.5-10.1); Chloride 109 mmol/L (98-107); Estimated GFR 79.47 (mL/min/1.73m2); Glucose 115 mg/dL (74-106); Magnesium 1.9 mg/dL (1.8-2.4); Potassium 4.1 mmol/L (3.5-5.1); Sodium 142 mmol/L (136-145); Troponin I < 50 ng/L (< or =60)
--- NOTE | 2024-01-31 10:28 | DI.RAD_ITS ---
Exam(s) XR CHEST 2V PA LATERAL EXAM: XR CHEST 2V PA LATERAL CLINICAL HISTORY: CP TECHNIQUE: 2D digital imaging was performed. Two views. COMPARISON: CR XR LUMBAR SPINE COMPLETE from 08/07/2023 FINDINGS: Exam limited by overlying monitoring leads. HEART: Normal size. Aorta: Not dilated. PULMONARY VASCULATURE: Normal. MEDIASTINUM: Unremarkable. LUNGS: Clear. PLEURAL SPACE: No pleural effusion or pneumothorax. BONE:Stable mild T12 compression fracture. Degenerative changes in thoracic spine. SOFT TISSUES: Unremarkable. IMPRESSION: No acute abnormality. DATA REPOSITORY: RADIATION DOSE DELIVERED:
[2024-01-31 11:47] VITALS: RESP 16
[2024-01-31 11:49] VITALS: BP 131/74; PULSE 63; RESP 16; TEMP 36.8; O2SAT 95
== END 2024-01-31 11:52 | disposition home or self-care (01) ==
PROVIDERS: Emergency Provider Physician Assistant; PCP Family Medicine
DX: R07.9 Chest pain, unspecified (principal); R06.02 Shortness of breath; I44.7 Left bundle-branch block, unspecified; I10 Essential (primary) hypertension; Z86.711 Personal history of pulmonary embolism; Z79.82 Long term (current) use of aspirin; Z79.02 Long term (current) use of antithrombotics/antiplatelets
CPT/HCPCS: 36415; 80053; 87426; 93005; 99284; 71046; 83735; 84484; 85025; 93010; 99283

== ENCOUNTER 2024-02-19 08:00 | Outpatient (RCR) | payer MEDICARE, SELFPAY | END 2024-02-21 23:59 | disposition home or self-care (01) | LOC: CR 08:00 | PROVIDERS: PCP Family Medicine; Visit Provider Internal Medicine Cardiovascular Disease | DX: I20.89 Other forms of angina pectoris (principal); Z95.5 Presence of coronary angioplasty implant and graft | CPT/HCPCS: S9472 ==

== ENCOUNTER 2024-03-15 18:02 | Outpatient (REF) | payer MEDICARE, SELFPAY ==
[2024-03-15 18:08] LABS: HCT 40.6 % (40.0-50.0); HGB 13.5 g/dL (13.5-17.5); MCHC 33.3 % (32.0-36.0); MCV 90 fL (80-95); MPV 10.9 fL (8.0-11.0); Platelet Count 185 10^3/uL (130-400); RDW 12.3 % (11.8-14.1); WBC 5.97 10^3/uL (4.4-10.8)
[2024-03-15 18:29] LABS: ALT 25 U/L (16-63); AST 20 U/L (15-37); Albumin 3.8 g/dL (3.4-5.0); Alkaline Phosphatase 105 U/L (46-116); Anion Gap 5.8 mmol/L (3-11); BUN 23 mg/dL (7-18); Bilirubin, Total 0.43 mg/dL (0.2-1.0); CO2 29.2 mmol/L (21.0-32.0); Chloride 107 mmol/L (98-107); Estimated GFR 79.47 (mL/min/1.73m2); Glucose 87 mg/dL (74-106); Potassium 5.2 mmol/L (3.5-5.1); Sodium 142 mmol/L (136-145); TSH (W/Ref FT4) 2.76 uIU/mL (0.36-3.74); Total Protein 6.9 g/dL (6.4-8.2)
== END 2024-03-15 18:03 | disposition home or self-care (01) ==
LOC: NCHCN 18:02
PROVIDERS: PCP Family Medicine; Visit Provider Family Medicine
DX: D64.9 Anemia, unspecified (principal); E87.8 Other disorders of electrolyte and fluid balance, not elsewhere classified; E03.9 Hypothyroidism, unspecified
CPT/HCPCS: 80053; 85027; 84443

== ENCOUNTER 2024-03-19 13:59 | Emergency (ER) | payer MEDICARE, SELFPAY ==
--- NOTE | 2024-03-19 14:00 | DI.RAD_ITS ---
Exam(s) XR HAND LT COMPLETE EXAM: XR HAND LT COMPLETE CLINICAL HISTORY: chainsaw injury. TECHNIQUE: 2D digital imaging was performed. Three views. COMPARISON: No exams were available for comparison FINDINGS: Exam limited by a large amount overlying gauze the dorsal aspect of the hand.. BONES: No acute fracture is present. No bony destructive lesion is seen. JOINTS: No dislocation present. Degenerative changes of the interphalangeal joints. SOFT TISSUE: The mainly obscured by gauze at the dorsum of the hand. This soft tissue air previously present. Metallic densities are noted at the ventral aspect of the hand which may not be related to the current injury. IMPRESSION: Dorsal soft tissue injury. No evidence of fracture. DATA REPOSITORY: RADIATION DOSE DELIVERED:
[2024-03-19 14:03] VITALS: BP 150/90; PULSE 108; RESP 18; TEMP 36.2; O2SAT 97
--- NOTE | 2024-03-19 14:19 | ED.GENADUL_ITS ---
Discharge Plan Disposition Patient Disposition: Home Discharge Details Clinical Impression: Complicated laceration of hand, Contact with chainsaw as cause of accidental injury Primary Care Provider: Layne Stark ED Provider: Lena Estevez Home Meds and New Rx's Prescriptions: No Action multivitamin [Multiple Vitamins] Tablet 1 tab PO DAILY atorvastatin [Lipitor] 40 MG tablet 40 mg PO DAILY levothyroxine [Synthroid] 100 MCG tablet 100 mcg PO DAILY oxycodone-acetaminophen [Percocet] 1 EACH tablet 1 tab-cap PO Q6H PRN tamsulosin [Flomax] 0.4 MG capsule 0.4 mg PO DAILY temazepam 15 MG capsule 15 mg PO HS esomeprazole magnesium 40 mg capsule,delayed release(DR/EC) 40 mg PO DAILY aspirin 81 mg tablet,delayed release (DR/EC) 81 mg PO DAILY clopidogrel 75 mg tablet 75 mg PO DAILY folic acid 1 mg tablet 1 mg PO DAILY metoprolol succinate 25 mg tablet extended release 24 hr 25 mg PO DAILY Discharge Instructions Instructions: Laceration Repair With Stitches ED Additional Instructions: You were seen in the emergency department today for evaluation of a chainsaw injury and were found to have a laceration to the back of your hand, with no evidence of injury to the tendons. You probably have some damage to the nerves, and the wound was repaired with sutures. The sutures need to stay in place for 10 to 14 days, and you should use bacitracin/antibiotic ointment and good wound care to protect it. If you notice signs of infection such as redness, swelling, or pus draining from the area please return to the emergency department immediately. Thank you for allowing us to be part of your care. HPI General Date/Time Provider Initiated Documentation: 03/19/24 14:07 . Limitations to Documentation: no limitations . Information obtained by: patient, family and old records reviewed . HPI Narrative: MDM: In brief, this is a 73-year-old male patient presenting for evaluation of a chainsaw injury. My differential includes but is not limited to laceration, tendinous injury, open fracture, muscular injury, neurovascular injury. This is an isolated injury and the patient reassuringly was in his normal state of health prior to this event. The wound was thoroughly cleansed, and an x-ray was obtained. The patient's tetanus shot was updated. At this time he is not desiring of any medications for management of pain. ED Course: X-ray reveals no fracture, dislocation, or other osseous involvement. Given the patient's intact tenderness examination, I am quite reassured that he will not require surgical intervention for correction. Discussion with Dr. Cabrera with orthopedics regarding the sensation changes was conducted, and given it is a dorsal and lateral, and not a protective sensory distribution, he would be unlikely to undergo surgical correction for this finding. The wound was thoroughly explored with no significant vascular or muscular injury appreciated, and the wound was closed as noted below. Wound care and suture care were detailed with the patient and the family, will need to return in 12 to 14 days for suture removal. At this time, the patient has had a full medical evaluation and is safe for discharge to home. They are hemodynamically stable, ambulatory, and tolerating PO. They are understanding of the follow-up plan and return precautions. They left our facility without incident. Lena Estevez MD HPI: This is a 73-year-old male patient with a past medical history of hypertension, hyperlipidemia, hypothyroidism, BPH presenting for evaluation of a chainsaw injury. The patient was cutting wood with his chainsaw and it slipped, and he cut in the webspace between his fourth and fifth digit of dorsum of his left hand. He also has a small laceration over the middle phalanx of the fourth digit, with active venous bleeding. He reports that he wrapped the injury immediately, and presented to care without any medications being administered prior to arrival. The patient reports that he did not sustain any additional injury, is currently feeling well and is not experiencing any pain. Exam: Gen: Awake and alert, in no apparent distress HEENT: Non-icteric sclera Neck: Supple Lungs: No apparent respiratory distress, normal respiratory effort. CV: Appears well perfused, strong distal pulses Abdomen: Non-distended MSK: The patient's left hand has several lacerations to the dorsal webspace between digits 4 and 5, as well as a small laceration over the middle phalanx of the fourth digit, with active hemorrhage. The patient has full resisted function of his FDP/FDS and extensor tendons x 4 digits without pain or weakness, does endorse sensory deficit to the lateral fourth digit.. Otherwise, moves 4 extremities without apparent limitation in ROM Skin: Visualized skin without rashes, cyanosis. Neuro: Normal Gait, no obvious focal deficits or facial asymmetry. Speaks in full, clear sentences. Psych: Appropriate for situation. Related Data Home Medications ?Medication ?Instructions ?Recorded ?Confirmed atorvastatin 40 mg tablet (Lipitor) 40 mg PO DAILY 04/04/17 01/31/24 levothyroxine 100 mcg tablet 100 mcg PO DAILY 04/04/17 01/31/24 (Synthroid) oxycodone-acetaminophen 10 mg-325 1 tab-cap PO Q6H PRN 04/04/17 01/31/24 mg tablet (Percocet) tamsulosin 0.4 mg capsule (Flomax) 0.4 mg PO DAILY 04/04/17 01/31/24 temazepam 15 mg capsule 15 mg PO HS 04/04/17 01/31/24 esomeprazole magnesium 40 mg 40 mg PO DAILY 05/08/23 01/31/24 capsule,delayed release multivitamin (Multiple Vitamins 1 tab PO DAILY 05/24/23 01/31/24 tablet) aspirin 81 mg tablet,delayed 81 mg PO DAILY 01/11/24 01/31/24 release clopidogrel 75 mg tablet 75 mg PO DAILY 01/11/24 01/31/24 folic acid 1 mg tablet 1 mg PO DAILY 01/11/24 01/31/24 metoprolol succinate 25 mg 25 mg PO DAILY 01/11/24 01/31/24 tablet,extended release 24 hr Allergies Allergy/AdvReac Type Severity Reaction Status Date / Time No Known Drug Allergies Allergy Unknown nonenone Verified 03/19/24 14:04 General Stated Complaint: Laceration TODD: 3 Course Vital Signs Vital signs: Vital Signs Temperature 36.2 C L 03/19/24 14:03 Pulse 108 H 03/19/24 14:03 Respiratory Rate 18 03/19/24 14:03 Blood Pressure 150/90 H 03/19/24 14:03 Pulse Oximetry 97 03/19/24 14:03 Temperature 36.2 C L 03/19/24 14:03 Temperature Source Skin 03/19/24 14:03 Pulse 108 H 03/19/24 14:03 Respiratory Rate 18 03/19/24 14:03 Blood Pressure 150/90 H 03/19/24 14:03 Blood Pressure Position Sitting 03/19/24 14:03 Pulse Oximetry 97 03/19/24 14:03 Oxygen Delivery Method Room Air 03/19/24 14:03 Oxygen Flow Rate 0 03/19/24 14:03 Pain Level 0 03/19/24 14:03 Procedures Laceration Laceration 1: Site: hand Side (If applicable): left Size (cm): 4 Description: flap and irregular Depth: simple, single layer Local anesthetic: Lidocaine 1% Amount of anesthesia used (mL): 7 Pre-repair: wound explored, irrigated extensively and deep structures intact Skin layer closed with: other (Ethilon) Size (cm): 4-0 Number of sutures: 10 Technique: simple, interrupted and other (6 vertical mattress around skin flap, 4 simple interrupted) Medical Decision Making Quality:SDOH Health Related Social Needs: No Data to Display PFSH All Active Problems (Updated 03/19/24 @ 16:12 by Lena Estevez MD) Contact with chainsaw as cause of accidental injury (Acute) Complicated laceration of hand (Acute) Arthritis of right glenohumeral joint (Acute) Arthritis of left glenohumeral joint (Acute) Painless rectal bleeding (Acute) Encounter for screening colonoscopy (Acute) Medical History (Updated 03/19/24 @ 16:12 by Lena Estevez MD) H/O fracture Back fracture 2003 Thyroid disease HTN (hypertension) GERD (gastroesophageal reflux disease) PE (pulmonary thromboembolism) 1988 Surgical History History of bilateral knee replacement H/O inguinal hernia repair History of repair of anterior cruciate ligament of left knee EGD - [facility] (04/18/17) Colonoscopy - [facility] (05/2023) Social History Smoking/Tobacco Use Status: Never Smoking risk assessment performed?: Yes Alcohol Intake: current Alcohol Intake frequency: a few times a week Drug use: Never Substance use type: does not use Housing: house Do you feel safe at home: Yes Do you feel safe in your relationship?: Yes
== END 2024-03-19 16:22 | disposition home or self-care (01) ==
PROVIDERS: Emergency Provider Emergency Medicine; PCP Family Medicine
DX: S61.412A Laceration without foreign body of left hand, initial encounter (principal); I10 Essential (primary) hypertension; E78.5 Hyperlipidemia, unspecified; Z86.718 Personal history of other venous thrombosis and embolism; Z23 Encounter for immunization; Z79.82 Long term (current) use of aspirin; Z79.02 Long term (current) use of antithrombotics/antiplatelets
CPT/HCPCS: 12002; 90471; 90715; 99283; 73130

== ENCOUNTER 2024-07-15 14:54 | Emergency (ER) | payer MEDICARE, SELFPAY ==
--- NOTE | 2024-07-15 14:45 | RT.EKG_ITS ---
APPROVED REPORT Exam: Resting ECG Reason for Exam: Chest pain Patient Location: E HR:67 bpm ECG Measurements Heart Rate 67 AXIS TN 186 P 39 QRSd 165 QRS -22 QT 443 T 72 QTc 467 Conclusion Sinus rhythm, rate 67 LBBB unchanged from priors No STEMI
[2024-07-15 14:57] VITALS: BP 163/92; PULSE 68; RESP 15; TEMP 36.3; O2SAT 94
[2024-07-15 15:00] VITALS: BP 163/92; PULSE 68; RESP 15; TEMP 36.3; O2SAT 94
--- NOTE | 2024-07-15 15:23 | ED.GENADUL_ITS ---
Discharge Plan Disposition Patient Disposition: Home Condition: Stable Discharge Details Clinical Impression: COVID-19, CAD (coronary artery disease), Hypothyroidism Primary Care Provider: Layne Stark ED Provider: Lena Estevez Home Meds and New Rx's Prescriptions: New benzonatate 100 mg capsule 100 mg PO TID PRNQty: 14 0RF No Action multivitamin [Multiple Vitamins] Tablet 1 tab PO DAILY atorvastatin [Lipitor] 40 MG tablet 40 mg PO DAILY levothyroxine [Synthroid] 100 MCG tablet 100 mcg PO DAILY oxycodone-acetaminophen [Percocet] 1 EACH tablet 1 tab-cap PO Q6H PRN tamsulosin [Flomax] 0.4 MG capsule 0.4 mg PO DAILY temazepam 15 MG capsule 15 mg PO HS esomeprazole magnesium 40 mg capsule,delayed release(DR/EC) 40 mg PO DAILY aspirin 81 mg tablet,delayed release (DR/EC) 81 mg PO DAILY clopidogrel 75 mg tablet 75 mg PO DAILY folic acid 1 mg tablet 1 mg PO DAILY metoprolol succinate 25 mg tablet extended release 24 hr 25 mg PO DAILY finasteride 5 mg tablet 5 mg PO DAILY Discharge Instructions Instructions: COVID-19 ED Additional Instructions: You were seen in the emergency department today for evaluation of a cough and were found to be positive for COVID-19. In our department you do full physical examination performed and had an x-ray that was negative for pneumonia. Unfortunately some of the medications that you take are not safe to mix with Paxlovid, and so I recommend that you continue conservative management with h ydration, good nutrition, [id number] medications as needed. I will provide you with a prescription for Tessalon Perles, please use these as prescribed if needed for coughing. Please follow-up with your primary care providers and thank you for allowing us to be part of your care. HPI General Mode of arrival: ambulatory . Date/Time Provider Initiated Documentation: 07/15/24 15:06 . Limitations to Documentation: no limitations . Information obtained by: patient, family and old records reviewed . HPI Narrative: HPI: This is a 73-year-old male patient with a past medical history significant for CAD status post stenting in spring 2023, and history of hypothyroidism, presenting for evaluation of cough and general malaise. The patient began to feel unwell on Monday, has had a dry cough and feels like there is phlegm stuck in his throat. He has felt generally unwell, has had lower appetite, states that he is not sure if he has been running a fever or not. He has had a runny nose, states that he has not had any recent sick contacts, did get his flu shot this year but not his COVID-vaccine. Has not tried any ship-aec-lahnzsj medications for management of the symptoms, did try some honey. States that the cough persisted all night and kept him awake. States that he feels short of breath with exertion, that has been present since his heart attack but worsened this weekend. The patient denies active chest pain, symptoms has chest pain with coughing. Exam: Gen: Awake and alert, in no apparent distress HEENT: Non-icteric sclera Neck: Supple Lungs: No apparent respiratory distress, normal respiratory effort. Lung sounds clear and equal bilaterally without wheezes, rhonchi, rales CV: Appears well perfused, heart with regular rate and rhythm, strong distal pulses Abdomen: Non-distended MSK: Moves 4 extremities without apparent limitation in ROM Skin: Visualized skin without rashes, cyanosis. Neuro: Normal Gait, no obvious focal deficits or facial asymmetry. Speaks in full, clear sentences. Psych: Appropriate for situation. MDM: This is a 73-year-old male patient presenting for evaluation of 3 days of cough and general malaise. Differential includes but is not limited to viral URI, bronchitis, pneumonia. History and physical examination less concerning for reactive airway disease exacerbation, fluid overload or pulmonary edema, pn eumothorax. No chest pain at this time, though I certainly did consider ACS, STEMI, NSTEMI, unstable angina. The patient's symptoms are less consistent with pulmonary embolism, and he is without tachycardia or hypoxia. We will obtain laboratory studies to include CBC, CMP, troponin, Fluvid, and will obtain an x-ray of the chest. EKG without evidence of ischemia, stable left bundle branch block compared to priors. ED Course: I independently interpreted the laboratory studies, which show no significant leukocytosis, anemia, or thrombocytopenia. The chemistry panel is without evidence of electrolyte abnormality, kidney dysfunction, or liver injury. troponin is quite low, and in the absence of chest pain I do not see an indication on our protocol to proceed with delta troponin. COVID-positive on viral swab. X-ray independently interpreted by myself and showing no evidence for pneumonia. I discussed the patient's medications, and given his statin use I do not think he wound be a good candidate for Paxlovid treatment I did provide him with a prescription for Tesruben Lanza, and discussed conservative management and outpatient follow-up. . At this time, the patient has had a full medical evaluation and is safe for discharge to home. They are hemodynamically stable, ambulatory, and tolerating PO. They are understanding of the follow-up plan and return precautions. They left our facility without incident. Lena Estevez MD Related Data Home Medications ?Medication ?Instructions ?Recorded ?Confirmed atorvastatin 40 mg tablet (Lipitor) 40 mg PO DAILY 04/04/17 07/15/24 levothyroxine 100 mcg tablet 100 mcg PO DAILY 04/04/17 07/15/24 (Synthroid) oxycodone-acetaminophen 10 mg-325 1 tab-cap PO Q6H PRN 04/04/17 07/15/24 mg tablet (Percocet) tamsulosin 0.4 mg capsule (Flomax) 0.4 mg PO DAILY 04/04/17 07/15/24 temazepam 15 mg capsule 15 mg PO HS 04/04/17 07/15/24 esomeprazole magnesium 40 mg 40 mg PO DAILY 05/08/23 07/15/24 capsule,delayed release multivitamin (Multiple Vitamins 1 tab PO DAILY 05/24/23 07/15/24 tablet) aspirin 81 mg tablet,delayed 81 mg PO DAILY 01/11/24 07/15/24 release clopidogrel 75 mg tablet 75 mg PO DAILY 01/11/24 07/15/24 folic acid 1 mg tablet 1 mg PO DAILY 01/11/24 07/15/24 metoprolol succinate 25 mg 25 mg PO DAILY 01/11/24 07/15/24 tablet,extended release 24 hr benzonatate 100 mg capsule 100 mg PO TID PRN #14 caps 07/15/24 finasteride 5 mg tablet 5 mg PO DAILY 07/15/24 07/15/24 Previous Rx's ?Medication ?Instructions ?Recorded benzonatate 100 mg capsule 100 mg PO TID PRN #14 caps 07/15/24 Allergies Allergy/AdvReac Type Severity Reaction Status Date / Time No Known Drug Allergies Allergy Unknown nonenone Verified 03/19/24 14:04 General Stated Complaint: RespSymp TODD: 3 Course Vital Signs Vital signs: Vital Signs Temperature 36.3 C L 07/15/24 14:57 Pulse 68 07/15/24 14:57 Respiratory Rate 15 07/15/24 14:57 Blood Pressure 163/92 H 07/15/24 14:57 Pulse Oximetry 94 07/15/24 14:57 Temperature 36.3 C L 07/15/24 15:00 Pulse 68 07/15/24 15:00 Respiratory Rate 15 07/15/24 15:00 Blood Pressure 163/92 H 07/15/24 15:00 Blood Pressure Position Sitting 07/15/24 15:00 Pulse Oximetry 94 07/15/24 15:00 Oxygen Delivery Method Room Air 07/15/24 15:00 Oxygen Flow Rate 0 07/15/24 15:00 Medical Decision Making Quality:SDOH Health Related Social Needs: No Data to Display PFSH All Active Problems (Updated 07/15/24 @ 16:24 by Lena Estevez MD) Hypothyroidism (Chronic) CAD (coronary artery disease) (Chronic) COVID-19 (Acute) Arthritis of right glenohumeral joint (Acute) Arthritis of left glenohumeral joint (Acute) Painless rectal bleeding (Acute) Encounter for screening colonoscopy (Acute) Medical History (Updated 07/15/24 @ 16:24 by Lena Estevez MD) H/O fracture Back fracture 2003 Thyroid disease HTN (hypertension) GERD (gastroesophageal reflux disease) PE (pulmonary thromboembolism) 1988 Surgical History History of bilateral knee replacement H/O inguinal hernia repair History of repair of anterior cruciate ligament of left knee EGD - [facility] (04/18/17) Colonoscopy - [facility] (05/2023) Social History Smoking/Tobacco Use Status: Never Smoking risk assessment performed?: Yes Alcohol Intake: current Alcohol Intake frequency: a few times a week Drug use: Never Substance use type: does not use Housing: house Do you feel safe at home: Yes Do you feel safe in your relationship?: Yes PAWSS Have you Been Recently Intoxicated or Drunk Within the Last 30 days?: No Have you Ever Experienced Previous Episodes of Alcohol Withdrawal?: No Have you ever Experienced Withdrawal Seizures?: No Have you ever Experienced Delirium Tremens(DT)s?: No Have you ever undergone Alcohol Rehabilitation Treatment (i.e, inpt ot outpatient treatment programs)?: No Have you ever Experienced Blackouts?: No Have you ever Combined Alcohol with other Downers within the last 90 days?: No Have you ever Combined Alcohol with any other Substance of Abuse during the last 90 days?: No Positive Blood Alcohol level on Presentation? [PCS.BAL]: No Evidence of Increased Autonomic Activity (i.e. HR>120, tremor, sweating, agitation, nausea)?: No Result: 0
[2024-07-15 15:40] LABS: Abs Immature Grans 0.02 10^3/uL (0.0-0.06); Absolute Basophil Count 0.03 10^3/uL (0.0-0.2); Absolute Eosinophil Count 0.22 10^3/uL (0.0-0.7); Absolute Lymphocyte Count 1.03 10^3/uL (1.2-3.4); Absolute Neutrophil Count 3.27 10^3/uL (1.2-6.7); Basophils % 0.5 %; Eosinophils % 3.9 %; HCT 41.5 % (40.0-50.0); HGB 13.5 g/dL (13.5-17.5); Immature Grans % 0.4 %; Lymphocytes % 18.5 %; MCHC 32.5 % (32.0-36.0); MCV 89 fL (80-95); Neutrophils % 58.7 %; Platelet Count 147 10^3/uL (130-400); RBC 4.66 10^6/uL (4.36-5.78); RDW 12.2 % (11.8-14.1); RDW-SD 39.7 fL; WBC 5.57 10^3/uL (4.4-10.8)
[2024-07-15 16:04] LABS: ALT 32 U/L (16-63); AST 25 U/L (15-37); Albumin 3.7 g/dL (3.4-5.0); Alkaline Phosphatase 115 U/L (46-116); Anion Gap 4.8 mmol/L (3-11); BUN 19 mg/dL (7-18); Bilirubin, Total 0.34 mg/dL (0.2-1.0); CO2 30.2 mmol/L (21.0-32.0); CREATININE 1.1 mg/dL (0.70-1.30); Calcium 9.3 mg/dL (8.5-10.1); Chloride 108 mmol/L (98-107); Estimated GFR 70.88 (mL/min/1.73m2); Glucose 91 mg/dL (74-106); Potassium 4.1 mmol/L (3.5-5.1); Sodium 143 mmol/L (136-145); Total Protein 7.5 g/dL (6.4-8.2); Troponin I 9 ng/L (<or=76)
--- NOTE | 2024-07-15 16:08 | DI.RAD_ITS ---
Exam(s) XR CHEST 2V PA LATERAL EXAM: XR CHEST 2V PA LATERAL CLINICAL HISTORY: Eval PNA TECHNIQUE: 2D digital imaging was performed of the chest. Two images were obtained. PA and lateral views were obtained. COMPARISON: CR XR SHOULDER RT COMPLETE 2+V from 01/23/2024 CR XR CHEST 2V PA LATERAL from 01/31/2024 FINDINGS: MEDIASTINUM: Normal. HEART: Normal. PULMONARY VASCULATURE: Normal. LUNGS: There is again seen a chronic infiltrate in the right upper lobe. This likely reflects scarri ng. No new infiltrates are seen. PLEURAL SPACE: No pleural effusion or pneumothorax. BONE:Within normal limits for the patient's age. OTHER FINDINGS:Normal. IMPRESSION: No acute pulmonary findings. DATA REPOSITORY: RADIATION DOSE DELIVERED:
[2024-07-15 16:16] LABS: Influenza A PCR Negative (Negative); Influenza B PCR Negative (Negative); RSV PCR Negative (Negative)
[2024-07-15 16:21] LABS: COVID-19 PCR Positive (Negative); Source Nasopharynx
[2024-07-15] MEDS: Benzonatate 100 MG CAP PO (16:38)
== END 2024-07-15 16:56 | disposition home or self-care (01) ==
PROVIDERS: Emergency Provider Emergency Medicine; PCP Family Medicine
DX: U07.1 COVID-19 (principal); I10 Essential (primary) hypertension; I25.10 Atherosclerotic heart disease of native coronary artery without angina pectoris; E03.9 Hypothyroidism, unspecified; Z86.711 Personal history of pulmonary embolism; I44.7 Left bundle-branch block, unspecified
CPT/HCPCS: 80053; 87637; 93005; 99285; 71046; 83735; 84484; 85025; 93010; 99284

== ENCOUNTER 2025-03-31 07:43 | Outpatient (CLI) | payer MEDICARE, SELFPAY ==
--- NOTE | 2025-03-31 | DI.RAD_ITS ---
Exam(s) XR THORACIC SPINE COMPLETE EXAM: XR THORACIC SPINE COMPLETE CLINICAL HISTORY: MID BACK PAIN, M54.9. TECHNIQUE: 2D digital imaging was performed. Three views. COMPARISON: CR XR CHEST 2V PA LATERAL from 07/15/2024 FINDINGS: BONES: There is stable mild compression fracture of the anterior aspect of the T12 vertebral body. Remaining vertebral body heights are normal. ALIGNMENT: Within normal limits. DISKS: There small endplate osteophytes. There is narrowing of the T11-12 disc space as well as some narrowing of the T7-8 through T9-10 discs. SOFT TISSUE: Visualized lungs are clear. IMPRESSION: Stable T12 compression fracture. Mild to moderate degenerative disc changes in the midthoracic spine. DATA REPOSITORY: RADIATION DOSE DELIVERED:
--- NOTE | 2025-03-31 | DI.RAD_ITS ---
Exam(s) XR LUMBAR SPINE COMPLETE EXAM: XR LUMBAR SPINE COMPLETE CLINICAL HISTORY: MID BACK PAIN, M54.9. TECHNIQUE: 2D digital imaging was performed. Five views. COMPARISON: CR XR LUMBAR SPINE COMPLETE from 08/07/2023 FINDINGS: BONES: No fracture or destructive lesion. Stable compression fracture of T12. The remaining vertebral body heights are maintained. Moderate facet hypertrophy identified at L4-5. mild facet degenerative changes elsewhere.. DISKS: Intervertebral disc spaces are maintained. ALIGNMENT: Slight degenerative spondylolisthesis at L4-5. Lumbar spinal alignment is otherwise within normal limits. SOFT TISSUE: Normal. IMPRESSION: Stable T 12 compression fracture. Facet degenerative changes greatest at L4-5. DATA REPOSITORY: RADIATION DOSE DELIVERED:
== END 2025-03-31 08:03 ==
PROVIDERS: PCP Family Medicine; Visit Provider Family Medicine
DX: S22.080A Wedge compression fracture of T11-T12 vertebra, initial encounter for closed fracture (principal); X58.XXXA Exposure to other specified factors, initial encounter; M51.360 Other intervertebral disc degeneration, lumbar region with discogenic back pain only
CPT/HCPCS: 72072; 72110

== ENCOUNTER 2025-03-31 21:22 | Outpatient (REF) | payer MEDICARE, SELFPAY ==
[2025-03-31 21:32] LABS: TSH (W/Ref FT4) 3.04 uIU/mL (0.36-3.74)
== END 2025-03-31 21:23 | disposition home or self-care (01) ==
LOC: LBN 21:22
PROVIDERS: PCP Family Medicine; Visit Provider Family Medicine
DX: E03.9 Hypothyroidism, unspecified (principal)
CPT/HCPCS: 84443